=== PATIENT | male | born 1965 | race African-American/Black ===

== ENCOUNTER 2018-11-21 10:24 | Emergency (ER) | payer SELFPAY ==
[~2018-11-21] VITALS: Ht 170.2 cm; Wt 92.0 kg
[2018-11-21 12:35] VITALS: BP 159/96
== END 2018-11-21 12:37 | disposition home or self-care (01) ==
LOC: ER 10:24
DX: S01.511A Laceration without foreign body of lip, initial encounter (principal); I10 Essential (primary) hypertension; Y08.89XA Assault by other specified means, initial encounter; Y93.89 Activity, other specified; Y92.89 Other specified places as the place of occurrence of the external cause; Y99.8 Other external cause status
CPT/HCPCS: 99281; 99283